=== PATIENT | male | born 1995 | race Caucasian/White ===

== ENCOUNTER 2018-02-25 20:46 | Emergency (ER) | payer SELFPAY ==
[~2018-02-25] VITALS: Ht 182.8 cm; Wt 81.6 kg
[~2018-02-25 20:46] MED LIST: ANAPROX DS550 MG PO; CYCLOBENZAPRINE10 MG PO; DURICEF500 MG PO; IBU-8800 MG PO; KEFLEX500 MG PO; NAPROSYN500 MG PO; PEN-VEE K500 MG PO; PERCOCET 325 MG1 TA2 PO; VICODIN 5/500 505 MG PO; VYVANSE50 MG PO
[2018-02-25] MEDS ORDERED: NAPROSYN500 MG PO (20:52)
[2018-02-25] MEDS ORDERED: CYCLOBENZAPRINE10 MG PO (20:52)
[2018-02-25 21:23] VITALS: BP 128/70
== END 2018-02-25 21:38 | disposition home or self-care (01) ==
LOC: ED 20:46
DX: M54.5 Low back pain (principal); F17.200 Nicotine dependence, unspecified, uncomplicated

== ENCOUNTER 2020-12-31 01:01 | Emergency (ER) | payer SELFPAY ==
[~2020-12-31] VITALS: Ht 182.8 cm; Wt 77.1 kg
[2020-12-31 01:09] VITALS: BP 119/76
[2020-12-31] MEDS ORDERED: NAPROSYN500 MG PO (01:17)
[2020-12-31] MEDS ORDERED: METHOCARBAMOL750 M1 PO (01:17)
== END 2020-12-31 01:44 | disposition home or self-care (01) ==
LOC: ED 01:01
DX: S39.012A Strain of muscle, fascia and tendon of lower back, initial encounter (principal); Z79.899 Other long term (current) drug therapy; X58.XXXA Exposure to other specified factors, initial encounter; Y93.89 Activity, other specified; Y92.89 Other specified places as the place of occurrence of the external cause; Y99.8 Other external cause status

== ENCOUNTER 2021-01-25 03:18 | Emergency (ER) | payer OTHER ==
[~2021-01-25 03:18] MED LIST changes: +METHOCARBAMOL750 M1 PO
[2021-01-25 03:27] VITALS: BP 127/81
[2021-01-25 04:25] LABS: BILIRUBIN Negative (Negative); BLOOD Negative (Negative); CLARITY Clear (Clear); COLOR Yellow (Yellow); GLUCOSE Negative (Negative); KETONE Trace (Negative); LEUKO ESTERASE Negative (Negative); NITRITE Negative (Negative); SPECIFIC GRAVITY 1.025 (1.001-1.030)
== END 2021-01-25 05:48 | disposition home or self-care (01) ==
LOC: ED 03:18
PROVIDERS: Emergency Medicine
DX: Z20.2 Contact with and (suspected) exposure to infections with a predominantly sexual mode of transmission (principal); Z79.899 Other long term (current) drug therapy

== ENCOUNTER 2023-12-02 04:53 | Emergency (ER) | payer SELFPAY ==
[~2023-12-02] VITALS: Ht 187.9 cm; Wt 99.8 kg
[2023-12-02 05:08] VITALS: BP 122/70
[2023-12-02] MEDS ORDERED: Tetracaine Hydrochloride 0.5% 4 ML BOT OPH ONE (05:15)
[2023-12-02] MEDS ORDERED: Dexamethasone/Tobramycin OPHTHALMIC 2.5 ML BOTTLE OPH ONE (05:15)
== END 2023-12-02 05:41 | disposition home or self-care (01) ==
LOC: ED 04:53
DX: H16.133 Photokeratitis, bilateral (principal); F41.9 Anxiety disorder, unspecified; Z98.890 Other specified postprocedural states

== ENCOUNTER 2024-03-25 21:41 | Emergency (ER) | payer SELFPAY ==
[~2024-03-25] VITALS: Ht 347.9 cm; Wt 7.9 kg
[2024-03-25 22:10] VITALS: BP 126/82
[2024-03-25] MEDS ORDERED: SODIUM CHLORIDE 0.9% 1,000 ML IV ONE (23:10)
[2024-03-25] MEDS ORDERED: Ketorolac Tromethamine 30 MG/ML VIAL IV ONE (23:10)
[2024-03-25] MEDS ORDERED: Ondansetron Hydrochloride 4 MG/2 ML VIAL IV ONE (23:10)
[2024-03-25] MEDS ORDERED: diphenhydrAMINE hydrochloride 50 MG/ML VIAL IV ONE (23:10)
[2024-03-26] MEDS ORDERED: AMOX-CLAV 875-1 EACH PO (00:48)
== END 2024-03-26 01:12 | disposition home or self-care (01) ==
LOC: ED 21:41
DX: J32.9 Chronic sinusitis, unspecified (principal); R51.9 Headache, unspecified; Z88.6 Allergy status to analgesic agent

== ENCOUNTER 2024-04-21 21:06 | Emergency (ER) | payer SELFPAY ==
[~2024-04-21] VITALS: Ht 182.8 cm; Wt 81.6 kg
[~2024-04-21 21:06] MED LIST changes: +AMOX-CLAV 875-1 EACH PO
[2024-04-21 21:41] VITALS: BP 136/87
[2024-04-21] MEDS ORDERED: Lidocaine Hydrochloride 15 ML UDC PO STA (22:10)
[2024-04-21] MEDS ORDERED: CLINDAMYCIN HCL 300 MG CAPSULE PO ONE (22:10)
[2024-04-21] MEDS ORDERED: BENZOCAINE 20% 11.9 GM GEL T STA (22:10)
[2024-04-21] MEDS ORDERED: CLINDAMYCIN HC300 MG PO (22:13)
[2024-04-21] MEDS ORDERED: ORAL PAIN REL9.35 GM PO (22:13)
== END 2024-04-21 22:36 | disposition home or self-care (01) ==
LOC: ED 21:06
DX: K04.7 Periapical abscess without sinus (principal); F41.9 Anxiety disorder, unspecified; F90.9 Attention-deficit hyperactivity disorder, unspecified type; Z88.6 Allergy status to analgesic agent; Z88.5 Allergy status to narcotic agent; Z98.890 Other specified postprocedural states

== ENCOUNTER 2024-09-12 12:29 | Emergency (ER) | payer SELFPAY ==
[~2024-09-12] VITALS: Ht 182.8 cm; Wt 81.6 kg
[~2024-09-12 12:29] MED LIST changes: +CLINDAMYCIN HC300 MG PO; +ORAL PAIN REL9.35 GM PO
[2024-09-12 12:50] VITALS: BP 135/80
[2024-09-12] MEDS ORDERED: IBUPROFEN 800 MG TAB PO ONE (13:25)
[2024-09-12] MEDS ORDERED: MELOXICAM15 MG PO (13:44)
== END 2024-09-12 14:10 | disposition home or self-care (01) ==
LOC: ED 12:29
DX: N50.811 Right testicular pain (principal); F41.9 Anxiety disorder, unspecified; F90.9 Attention-deficit hyperactivity disorder, unspecified type; Z88.6 Allergy status to analgesic agent; Z88.5 Allergy status to narcotic agent; Z98.890 Other specified postprocedural states

== ENCOUNTER 2024-11-04 13:26 | Emergency (ER) | payer SELFPAY ==
[~2024-11-04] VITALS: Ht 182.8 cm; Wt 81.6 kg
[~2024-11-04 13:26] MED LIST changes: +MELOXICAM15 MG PO
[2024-11-04 13:35] VITALS: BP 130/87
[2024-11-04] MEDS ORDERED: AMOX-CLAV 875-1 EACH PO (13:58)
== END 2024-11-04 14:04 | disposition home or self-care (01) ==
LOC: ED 13:26
DX: H66.91 Otitis media, unspecified, right ear (principal); Z88.5 Allergy status to narcotic agent; Z88.6 Allergy status to analgesic agent